=== PATIENT | female | born 1985 | race African-American/Black ===

== ENCOUNTER 2018-08-08 11:32 | Emergency (ER) | payer OTHER ==
[2018-08-08] MEDS ORDERED: METHYLPREDNISOLONE 125 MG INJ ONE (11:49)
[2018-08-08] MEDS ORDERED: DIPHENHYDRAMINE 12.5MG/5ML LIQ ONE ×2 (11:50→13:29)
[2018-08-08] MEDS ORDERED: FAMOTIDINE 20 MG/2 ML VIAL IV ONE (11:50)
[2018-08-08] MEDS ORDERED: ONDANSETRON 4 MG/2 ML VIAL ONE (12:01)
--- NOTE | 2018-08-08 14:13 | EDPHYS ---
Physician Documentation [facility] Name: Luiza Alfredo Age: 32 yrs Sex: Female : 1985 Arrival Date: 08/08/2018 Time: 11:35 Bed 4 Private MD: ED Physician Mario Pride HPI: 08/08 17:45 This 32 yrs old Black Female presents to ER via EMS with complaints of Allergic kdr Reaction. 17:45 The patient presents with itching, redness of skin, Diffuse burning and itching. Onset: kdr The symptoms/episode began/occurred suddenly, just prior to arrival. Possible causes: The patient had just finished washing mayonnaise from her hair as a treatment for head lice. At home the patient or guardian has treated the symptoms with nothing. Severity of symptoms: At their worst the symptoms were moderate in the emergency department the symptoms are worse mildly. The patient has not experienced similar symptoms in the past. The patient has not recently seen a physician. Historical: - Allergies: 11:39 No Known Allergies; hb - Home Meds: 11:38 Xanax Oral [Active]; Zoloft Oral [Active]; hb - PMHx: 11:38 Anxiety; Depression; gall bladder disease.; hb - PSHx: 11:38 Cholecystectomy; hb - Immunization history:: Adult Immunizations up to date. - Social history:: Smoking status: Patient/guardian denies using tobacco. - Ebola Screening: : No symptoms or risks identified at this time. ROS: 17:45 Constitutional: Negative for fever, chills, and weight loss, Eyes: Negative for injury, kdr pain, redness, and discharge, ENT: Negative for injury, pain, and discharge, Neck: Negative for injury, pain, and swelling, Cardiovascular: Negative for chest pain, palpitations, and edema, Respiratory: Negative for shortness of breath, cough, wheezing, and pleuritic chest pain, Abdomen/GI: Negative for abdominal pain, nausea, vomiting, diarrhea, and constipation, Back: Negative for injury and pain, : Negative for injury, bleeding, discharge, and swelling, MS/Extremity: Negative for injury and deformity, Neuro: Negative for headache, weakness, numbness, tingling, and seizure activity. Psych: Negative for depression, anxiety, suicide ideation, homicidal ideation, and hallucinations, Allergy/Immunology: Negative for hives, rash, and allergies, Endocrine: Negative for neck swelling, polydipsia, polyuria, polyphagia, and marked weight changes, Hematologic/Lymphatic: Negative for swollen nodes, abnormal bleeding, and unusual bruising. 17:45 Skin: Positive for Burning and itching diffusely. Exam: 17:47 Constitutional: This is a well developed, well nourished patient who is awake, alert, kdr and in no acute distress. Head/Face: Normocephalic, atraumatic. Eyes: Pupils equal round and reactive to light, extra-ocular motions intact. Lids and lashes normal. Conjunctiva and sclera are non-icteric and not injected. Cornea within normal limits. Periorbital areas with no swelling, redness, or edema. Neck: Trachea midline, no thyromegaly or masses palpated, and no cervical lymphadenopathy. Supple, full range of motion without nuchal rigidity, or vertebral point tenderness. No Meningismus. Chest/axilla: Normal chest wall appearance and motion. Nontender with no deformity. No lesions are appreciated. Cardiovascular: Regular rate and rhythm with a normal S1 and S2. No gallops, murmurs, or rubs. Normal PMI, no JVD. No pulse deficits. Respiratory: Lungs have equal breath sounds bilaterally, clear to auscultation and percussion. No rales, rhonchi or wheezes noted. No increased work of breathing, no retractions or nasal flaring. Abdomen/GI: Soft, non-tender, with normal bowel sounds. No distension or tympany. No guarding or rebound. No evidence of tenderness throughout. Back: No spinal tenderness. No costovertebral tenderness. Full range of motion. MS/ Extremity: Pulses equal, no cyanosis. Neurovascular intact. Full, normal range of motion. Neuro: Awake and alert, GCS 15, oriented to person, place, time, and situation. Cranial nerves II-XII grossly intact. Motor strength 5/5 in all extremities. Sensory grossly intact. Cerebellar exam normal. Normal gait. Psych: Awake, alert, with orientation to person, place and time. Behavior, mood, and affect are within normal limits. 17:47 Skin: Appearance: normal except for affected area, Color: pink, erythematous. Vital Signs: 11:37 BP 144 / 106; Pulse 78; Resp 15; Temp 98.2; Pulse Ox 100% on R/A; Pain 2/10; hb 12:30 BP 136 / 86; Pulse 76; Resp 16; Pulse Ox 100% on R/A; hb 14:12 BP 128 / 78; Pulse 71; Resp 16; Temp 15; Pulse Ox 100% ; hb MDM: 14:13 Patient medically screened. kdr 17:45 Data reviewed: vital signs, nurses notes. Counseling: I had a detailed discussion with kdr the patient and/or guardian regarding: the historical points, exam findings, and any diagnostic results supporting the discharge/admit diagnosis, the need for outpatient follow up. Administered Medications: 11:52 Drug: SOLU-Medrol 125 mg Route: IVP; Site: left antecubital; hb 12:30 Follow up: Response: No adverse reaction hb 11:52 Drug: Pepcid 20 mg Route: IVP; Site: left antecubital; hb 12:30 Follow up: Response: No adverse reaction hb 11:55 CANCELLED (Physician Discretion): Benadryl 25 mg IVP once sg 11:56 CANCELLED (Physician Discretion): Benadryl 50 mg PO once sg 11:57 Drug: Zofran 4 mg Route: IVP; Site: left antecubital; hb 12:30 Follow up: Response: No adverse reaction hb 12:40 Drug: Benadryl 25 mg Route: PO; hb 13:10 Follow up: Response: No adverse reaction hb Disposition: 08/08/18 14:13 Discharged to Home. Impression: Acute allergic reaction. - Condition is Stable. - Discharge Instructions: Allergies, [id number]. - Prescriptions for Benadryl 25 mg Oral Capsule - take 1 capsule by ORAL route every 6 hours As needed; 30 tablet. Pepcid 20 mg Oral Tablet - take 1 tablet by ORAL route every 12 hours As needed; 20 tablet. Medrol (Luis Alfredo) 4 mg Oral Tablets, Dose Pack - take 1 tablet by ORAL route as directed - follow package instructions; 1 packet. - Medication Reconciliation Form, Thank You Letter, Antibiotic Education, Prescription Opioid Use form. - Follow up: Private Physician; When: 2 - 3 days; Reason: If symptoms return, Further diagnostic work-up, Recheck today's complaints, Continuance of care, Re-evaluation by your physician. - Problem is new. - Symptoms have improved. Signatures: Hardeep Fernández RN RN Mario Pride MD MD [facility] Bhumi Heller RN RN Karina Boyer RN RN Corrections: (The following items were deleted from the chart) 11:55 11:40 Benadryl 25 mg IVP once ordered. [facility] 11:56 11:55 Benadryl 50 mg PO once ordered. [facility] 14:33 14:13 08/08/2018 14:13 Discharged to Home. Impression: Acute allergic reaction. ss Condition is Stable. Forms are Medication Reconciliation Form, Thank You Letter, Antibiotic Education, Prescription Opioid Use. Follow up: Private Physician; When: 2 - 3 days; Reason: If symptoms return, Further diagnostic work-up, Recheck today's complaints, Continuance of care, Re-evaluation by your physician. Problem is new. Symptoms have improved. kdr
--- NOTE | 2018-08-08 14:13 | ER ---
Nurse's Notes [facility] Name: Luiza Alfredo Age: 32 yrs Sex: Female : 1985 Arrival Date: 08/08/2018 Time: 11:35 Bed 4 Private MD: Diagnosis: Acute allergic reaction Presentation: 08/08 11:35 Presenting complaint: EMS states: SOB, scratchy throat, and hives after using hb mayonnaise conditioning treatment on hair 1 hr [employer]. Transition of care: patient was not received from another setting of care. Onset: The symptoms/episode began/occurred acutely, 1 hour(s) ago. Anaphylaxis evaluation, no signs or symptoms of anaphylaxis were noted. Onset of symptoms was August 08, 2018. Risk Assessment: Do you want to hurt yourself or someone else? Patient reports no desire to harm self or others. Initial Sepsis Screen: Does the patient meet any 2 criteria? No. Patient's initial sepsis screen is negative. Does the patient have a suspected source of infection? No. Patient's initial sepsis screen is negative. Care prior to arrival: None. 11:35 Method Of Arrival: EMS: [facility] 11:35 Acuity: MISHA 3 hb Triage Assessment: 11:40 General: Appears in no apparent distress. uncomfortable, Behavior is cooperative, hb anxious. Pain: Pain currently is 3 out of 10 on a pain scale. EENT: No signs and/or symptoms were reported regarding the EENT system. Neuro: Level of Consciousness is awake, alert, obeys commands, Oriented to person, place, time, situation. Cardiovascular: Capillary refill < 3 seconds Patient's skin is warm and dry. Respiratory: Airway is patent Respiratory effort is even, unlabored, Respiratory pattern is regular, symmetrical, Breath sounds are clear bilaterally. GI: No signs and/or symptoms were reported involving the gastrointestinal system. : No signs and/or symptoms were reported regarding the genitourinary system. Derm: Rash noted that is urticaria. Musculoskeletal: No signs and/or symptoms reported regarding the musculoskeletal system. Historical: - Allergies: 11:39 No Known Allergies; hb - Home Meds: 11:38 Xanax Oral [Active]; Zoloft Oral [Active]; hb - PMHx: 11:38 Anxiety; Depression; gall bladder disease.; hb - PSHx: 11:38 Cholecystectomy; hb - Immunization history:: Adult Immunizations up to date. - Social history:: Smoking status: Patient/guardian denies using tobacco. - Ebola Screening: : No symptoms or risks identified at this time. Screenin:58 Abuse screen: Denies threats or abuse. Denies injuries from another. Nutritional hb screening: No deficits noted. Tuberculosis screening: No symptoms or risk factors identified. Fall Risk None identified. Assessment: 11:58 Reassessment: Pt actively vomiting, PETE Albarran notified, Zofran administered as ordered. hb 12:45 Reassessment: Patient appears in no apparent distress at this time. Patient and/or hb family updated on plan of care and expected duration. Pain level reassessed. Patient is alert, oriented x 3, equal unlabored respirations, skin warm/dry/pink. Patient states symptoms have improved. 13:45 Reassessment: Patient appears in no apparent distress at this time. No changes from hb previously documented assessment. Patient and/or family updated on plan of care and expected duration. Pain level reassessed. Patient is alert, oriented x 3, equal unlabored respirations, skin warm/dry/pink. 14:30 Reassessment: Patient appears in no apparent distress at this time. Patient and/or hb family updated on plan of care and expected duration. Pain level reassessed. Patient is alert, oriented x 3, equal unlabored respirations, skin warm/dry/pink. Patient denies pain at this time. Patient states feeling better. Patient states symptoms have improved. Vital Signs: 11:37 BP 144 / 106; Pulse 78; Resp 15; Temp 98.2; Pulse Ox 100% on R/A; Pain 2/10; hb 12:30 BP 136 / 86; Pulse 76; Resp 16; Pulse Ox 100% on R/A; hb 14:12 BP 128 / 78; Pulse 71; Resp 16; Temp 15; Pulse Ox 100% ; hb ED Course: 11:35 Patient arrived in ED. hb 11:36 Mario Pride MD is Attending Physician. kdr 11:37 Triage completed. hb 11:39 Arm band placed on right wrist. hb 11:42 Patient has correct armband on for positive identification. Placed in gown. Bed in low hb position. Call light in reach. Side rails up X 1. 11:42 Inserted saline lock: 22 gauge in left antecubital area, using aseptic technique. hb 11:57 Karina Boyer, RN is Primary Nurse. hb 14:34 No provider procedures requiring assistance completed. IV discontinued, intact, hb bleeding controlled, No redness/swelling at site. Pressure dressing applied. Administered Medications: 11:52 Drug: SOLU-Medrol 125 mg Route: IVP; Site: left antecubital; hb 12:30 Follow up: Response: No adverse reaction hb 11:52 Drug: Pepcid 20 mg Route: IVP; Site: left antecubital; hb 12:30 Follow up: Response: No adverse reaction hb 11:55 CANCELLED (Physician Discretion): Benadryl 25 mg IVP once sg 11:56 CANCELLED (Physician Discretion): Benadryl 50 mg PO once sg 11:57 Drug: Zofran 4 mg Route: IVP; Site: left antecubital; hb 12:30 Follow up: Response: No adverse reaction hb 12:40 Drug: Benadryl 25 mg Route: PO; hb 13:10 Follow up: Response: No adverse reaction hb Outcome: 14:13 Discharge ordered by . kdr 14:33 Patient left the ED. ss Signatures: Mario Pride MD MD [facility] Bhumi Heller RN RN Karina Boyer RN RN Hardeep Phipps RN
[2018-08-08 14:40] VITALS: O2SAT 100
[2018-08-08 14:42] VITALS: BP 128/78; TEMP 15
== END 2018-08-08 14:33 | disposition home or self-care (01) ==
LOC: ER 11:32
DX: L29.9 Pruritus, unspecified (principal); F32.9 Major depressive disorder, single episode, unspecified; F41.9 Anxiety disorder, unspecified
CPT/HCPCS: 96374; 96375; 99283; J2405; J2930